=== PATIENT | female | born 1950 | race Caucasian/White ===

== ENCOUNTER → 2016-09-12 | Day surgery (SDC) | payer BC ==
[2016-09-05 09:27] LABS: HEMATOCRIT 35.4 % (37-47); MEAN CELL VOLUME 77.3 fL (80-100); MEAN CORPUSCULAR HEMOGLOBIN 23.4 pg (25-34); MEAN CORPUSCULAR HGB CONC 30.2 g/dl (32-36); MEAN PLATELET VOLUME 9.2 fL (7.4-10.4); PLATELET COUNT 388 K/uL (130-400); RED BLOOD COUNT 4.58 M/uL (4.2-5.4); WHITE BLOOD COUNT 8.99 K/uL (4.8-10.8)
[2016-09-05 09:35] LABS: PROTHROMBIN TIME (PATIENT) 10.3 SECONDS (9.0-12.0)
[2016-09-05 09:38] LABS: POTASSIUM 4.1 mmol/L (3.5-5.1)
[2016-09-06 08:57] VITALS: Ht 161.3 cm; Wt 100.0 kg
[~2016-09-12] VITALS: Ht 161.3 cm; Wt 100.0 kg
[~2016-09-12] MED LIST: ACETAMINOPHEN 325 MG TAB PO PRN; ALBUAER19 INH; ATROPINE SULFATE 0.1 MG/ML 5ML SYR IV PRN; BACITRACIN OP OINT 3.5 GM TUBE ONE; CLINDAMYCIN PHOS 150 MG/ML 2 ML VIAL IV SCH; CLR10 PO; DEXAMETHASONE SOD INJ 4 MG/ML VIAL ONE; ERYTHROMYCIN OP OINT 5 MG/GM 3.5 GM TUBE ONE; EpHEDrine SULFATE INJ 50 MG/ML AMP IV PRN; EpHEDrine SULFATE INJ 50 MG/ML AMP ONE; FENTANYL CITRATE INJ 50 MCG/1 ML 2 ML VIAL IV PRN; FENTANYL CITRATE INJ 50 MCG/1 ML 2 ML VIAL ONE; GENTIAN VIOLET TOP SOLN DROP CHARGE ONE; GLYCOPYRROLATE INJ 0.2 MG/ML VIAL ONE; HYDROCODONE/ACETAMOPHEN 5/325MG TAB PO PRN; LACTATED RINGER'S 1000ML 1,000 ML IV SCH; LIDOCAINE HCL 2% 2 ML VIAL (20MG/ML) ONE; LIDOCAINE/EPINEPHRINE 1% INJ 50 ML VIAL ONE; LNS3 PO; LORA-741 PO; METOCLOPRAMIDE HCL INJ 5 MG/ML 2 ML VIAL IV PRN; MIDAZOLAM HCL 1 MG/ML 2ML VIAL ONE; NEOSTIGMINE METHYLSULFATE 5 MG/5 ML SYR ONE; OMEP20TA14 PO; ONDANSETRON INJ 2 MG/ML 2 ML VIAL IV PRN; ONDANSETRON INJ 2 MG/ML 2 ML VIAL ONE; PHENYLEPHRINE HCL INJ 10 MG/ML VIAL ONE; POVIDONE-IODINE OP SOLN 30 ML BTL ONE; PROPOFOL IV EMULSION 10 MG/ML 20 ML VIAL IV ONE; SIMV20TA2 PO; SODIUM CHLORIDE 0.9% 1000ML 1,000 ML IV SCH; SODIUM CHLORIDE 0.9% INJ 10 ML VIAL ONE
--- NOTE | 2016-09-12 08:16 | History & Physical Bridge - [place] ---
H&P Re-Evaluation Bridge Note: I have examined the patient, reviewed the History & Physical and in the interval since the performance of the History & Physical I have noted the following changes of clinical significance: No changes noted
--- NOTE | 2016-09-12 09:53 | [facility] Post Operative Brief Note ---
Immediate Operative Summary Operative Date Sep 12, 2016. Pre-Operative Diagnosis Bilateral Dermatochalasis Post-Operative Diagnosis Same Procedure(s) Performed Bilateral Upper Eyelid Blepharoplasty Surgeon Dr. Lares Coal Chute Worker Surgeon(s) Vanda Bryson PA-C Estimated Blood Loss 1 Findings minimal medial fat herniation Specimens none Anesthesia general Complication(s) None Disposition Recovery Room / PACU
--- NOTE | 2016-09-12 09:53 | Discharge Instructions ---
Discharge Instructions Admission Reason for Admission: Bilateral Dermatochalasis Discharge Discharge Diagnosis / Problem: bilateral dermatochalasis Discharge Goals Goal(s): Decrease discomfort Activity Recommendations Activity Limitations: as noted below ACTIVITY RECOMMENDATIONS: __Normal activities _x_No bending, lifting or straining __No driving __Driving allowed when you are off pain medications __Walking permitted __You should have help at home for ___ days DRESSINGS: _x_No dressings required __Keep dressings dry/in place until first office visit __Remove dressings ___ and leave dressings off _x_Apply ice _3__ days __Remove dressings and reapply garment _x_Apply antibiotic ointment (Bacitracin Ophthalmic) to wounds 3-4 times/day for 10 days BATHING: __Keep dressings dry _x_Sponge bathing permitted __Showering permitted _x_No swimming, hot tubs or soaking in a tub MEDICATIONS: Resume previous medications unless instructed otherwise by your surgeon. _x_Do not use aspirin, Motrin, Advil or Ibuprofen as these may promote bleeding. Please use Tylenol. _x_Prescription(s) provided: pain medication and antibiotic ointment prescriptions were provided at your last office visit OTHER INSTRUCTIONS: __Record drain output 2-3 times per day SPECIAL CARE INSTRUCTIONS: * It is normal to have a mild fever after surgery. If your temperature is higher than 101.5 degrees F, please call the office at [phone]. * Constipation is a typical side effect of pain medication. An over-the- counter stool softener will help relieve this. * Leaking around surgical drains may occur and should not cause concern. Sometimes these drains become clogged. If this happens, remove the bulb and milk the clot out of the tube, then replace the bulb. * Drainage from wounds after liposuction is normal and should be expected. Garments will become soiled. You should protect furniture and bedding. This drainage should mostly subside within 2-3 days. Leave garments in place unless instructed to remove them. * If you have unusual drainage from a wound or are concerned you have an infection or have any questions or concerns, please call the office at [phone]. FOLLOW UP VISIT: If not already scheduled, please call the office, , when you return home after surgery to schedule an appointment to be seen in _2__ days. . Current Hospital Diet Patient's current hospital diet: Discharge Diet Recommended Diet: Regular Diet Procedures Procedures Performed: Bilateral Upper Eyelid Blepharoplasty Pending Studies Studies pending at discharge: no Medical Emergencies . Who to Call and When: Medical Emergencies: If at any time you feel your situation is an emergency, please call 911 immediately. . Non-Emergent Contact Non-Emergency issues call your: Primary Care Provider, Surgeon . "Provider Documentation" section prepared by Aylin Bryson. VTE Core Measure Inpt VTE Proph given/why not?: SCD's
[2016-09-12 11:23] VITALS: TEMP 36.4
--- NOTE | 2016-09-12 11:34 | Anesthesiology Progress Note ---
Anesthesia Post Op Note Date & Time Sep 12, 2016 at 11:34 Vital Signs Pain Intensity: 0 Vital Signs Past 12 Hours Date Time Temp Pulse Resp B/P Pulse Ox O2 Delivery O2 Flow Rate FiO2 09/12/16 11:23 36.4 80 20 116/75 98 Room Air 09/12/16 11:04 123/74 09/12/16 11:04 123/74 09/12/16 10:58 137/88 09/12/16 10:58 137/88 09/12/16 10:57 87 16 96 09/12/16 10:57 87 16 09/12/16 10:57 87 16 96 09/12/16 10:57 87 16 09/12/16 10:56 84 14 09/12/16 10:56 84 14 111/81 92 09/12/16 10:54 138/99 09/12/16 10:49 36.8 84 15 138/99 94 Room Air 09/12/16 10:48 140/88 09/12/16 10:46 82 17 100 09/12/16 10:46 81 15 100 09/12/16 10:44 135/87 09/12/16 10:41 79 14 09/12/16 10:41 79 14 100 09/12/16 10:39 142/89 09/12/16 10:33 141/94 09/12/16 10:31 79 16 100 09/12/16 10:31 79 12 100 09/12/16 10:28 146/89 09/12/16 10:26 88 16 93 09/12/16 10:26 88 16 09/12/16 10:25 86 19 94 09/12/16 10:25 87 19 09/12/16 10:24 118/85 09/12/16 10:20 85 15 99 09/12/16 10:20 83 21 100 09/12/16 10:18 139/87 09/12/16 10:14 136/86 09/12/16 10:10 86 19 09/12/16 10:10 84 19 100 09/12/16 10:09 143/98 09/12/16 10:06 36.5 93 16 146/93 100 Diffusion Mask 6 09/12/16 10:06 94 22 146/93 100 Diffusion Mask 6 09/12/16 07:32 36.8 81 16 131/87 97 Room Air Notes Mental Status: alert / awake / arousable, participated in evaluation Pt Amnestic to Procedure: Yes Nausea / Vomiting: adequately controlled Pain: adequately controlled Airway Patency, RR, SpO2: stable & adequate BP & HR: stable & adequate Hydration State: stable & adequate Anesthetic Complications: no major complications apparent
[2016-09-12 12:04] VITALS: BP 115/76; PULSE 85; O2SAT 96
--- NOTE | 2016-09-12 14:58 | Anesthesia Progress Nt - [facility] ---
Anesthesia Post Op Note Date & Time Sep 12, 2016 at 14:58 Vital Signs Pain Intensity: 0 Vital Signs Past 12 Hours Date Time Temp Pulse Resp B/P Pulse Ox O2 Delivery O2 Flow Rate FiO2 09/12/16 12:04 85 16 115/76 96 Room Air 09/12/16 11:23 36.4 80 20 116/75 98 Room Air 09/12/16 11:04 123/74 09/12/16 11:04 123/74 09/12/16 10:58 137/88 09/12/16 10:58 137/88 09/12/16 10:57 87 16 96 09/12/16 10:57 87 16 09/12/16 10:57 87 16 96 09/12/16 10:57 87 16 09/12/16 10:56 84 14 09/12/16 10:56 84 14 111/81 92 09/12/16 10:54 138/99 09/12/16 10:49 36.8 84 15 138/99 94 Room Air 09/12/16 10:48 140/88 09/12/16 10:46 82 17 100 09/12/16 10:46 81 15 100 09/12/16 10:44 135/87 09/12/16 10:41 79 14 09/12/16 10:41 79 14 100 09/12/16 10:39 142/89 09/12/16 10:33 141/94 09/12/16 10:31 79 16 100 09/12/16 10:31 79 12 100 09/12/16 10:28 146/89 09/12/16 10:26 88 16 93 09/12/16 10:26 88 16 09/12/16 10:25 86 19 94 09/12/16 10:25 87 19 09/12/16 10:24 118/85 09/12/16 10:20 85 15 99 09/12/16 10:20 83 21 100 09/12/16 10:18 139/87 09/12/16 10:14 136/86 09/12/16 10:10 86 19 09/12/16 10:10 84 19 100 09/12/16 10:09 143/98 09/12/16 10:06 36.5 93 16 146/93 100 Diffusion Mask 6 09/12/16 10:06 94 22 146/93 100 Diffusion Mask 6 09/12/16 07:32 36.8 81 16 131/87 97 Room Air Notes Mental Status: alert / awake / arousable, participated in evaluation Pt Amnestic to Procedure: Yes Nausea / Vomiting: adequately controlled Pain: adequately controlled Airway Patency, RR, SpO2: stable & adequate BP & HR: stable & adequate Hydration State: stable & adequate Anesthetic Complications: no major complications apparent
--- NOTE | 2016-09-13 09:55 | OPERATIVE REPORT ---
DATE OF OPERATION: 09/13/2016 PREOPERATIVE DIAGNOSIS: Bilateral upper eyelid dermatochalasis. POSTOPERATIVE DIAGNOSIS: Same. PROCEDURE: Bilateral upper blepharoplasty. SURGEON: Erika Lares. DISTRIBUTION LINEMAN: Aylin Bryson PA-C. ANESTHESIA: General. COMPLICATIONS: None. INDICATION FOR THE PROCEDURE: The patient is a 66-year-old female who had previously undergone upper blepharoplasty procedure several years ago by another physician. She began to develop additional visual field obstruction and underwent visual field testing which showed recurrent decreased peripheral vision. As such, we discussed performing bilateral upper blepharoplasty, which I felt was due to correct the excess skin weighing down her upper lids. Of note, she had a mild degree of lid ptosis on the left preoperatively, but I did not feel this was significant enough to consider ptosis repair, as it was very mild. BRIEF DESCRIPTION OF THE PROCEDURE: Risks, benefits, alternatives to the procedure were explained to the patient who agreed and signed consent. She was identified and marked in the preoperative holding area. She was brought to the operating room. She was positioned supine and placed under anesthesia. Initially, an LMA was placed. However, due to some concerns on the part of anesthesia, this was changed to an endotracheal tube prior to beginning the procedure. Once she was safely under anesthesia, the surgical site was prepped and draped sterilely. Timeout procedure was performed. Markings were applied. She was noted to have a well-healed upper blepharoplasty scars located about 11 mm superior to the ciliary margin bilaterally. I marked the inferior margin of my incision 8 mm above the ciliary margin in the mid pupillary line. A lenticular shaped excision was then planned, taking care to keep the superior aspect of the incision 1 cm below the brow. This resulted in a skin excision marking of about 1 cm. Similar markings were applied on the right side. Care was taken to avoid marking the incision medial to the medial punctum. Corneal shunts were then placed. I began with the left side. 1% lidocaine with epinephrine was used to anesthetize the planned incisions. A 15 blade scalpel was used to make the incision. Electrocautery was used to remove skin from the orbicularis muscle in a lateral to medial direction. Hemostasis was achieved using electrocautery. I then opened the medial fat compartment on the left with the return of pale yellow fat. Fat was carefully excised using forceps and electrocautery taking care to achieve hemostasis. Subsequent to this, the wound was reapproximated using 6-0 nylon interrupted sutures, taking a small bite of orbicularis muscle as well. A similar procedure was then performed on the right side. At the close of the case, there was excellent symmetry between the lids. Antibiotic ophthalmic ointment was applied. The patient was awakened and transferred to recovery room in satisfactory condition. There were no complications. I attest to the content of the Intraoperative Record and any orders documented therein. Any exceptio ns are noted below.
== END | disposition home or self-care (01) ==
LOC: X.SURG 07:14
PROVIDERS: ATTEND Plastic Surgery
DX: H02.831 Dermatochalasis of right upper eyelid (principal); H02.834 Dermatochalasis of left upper eyelid

== ENCOUNTER → 2016-11-27 | Outpatient (CLI) | payer BC ==
[~2016-11-27] MED LIST changes: -ACETAMINOPHEN 325 MG TAB PO PRN; -ATROPINE SULFATE 0.1 MG/ML 5ML SYR IV PRN; -BACITRACIN OP OINT 3.5 GM TUBE ONE; -CLINDAMYCIN PHOS 150 MG/ML 2 ML VIAL IV SCH; -DEXAMETHASONE SOD INJ 4 MG/ML VIAL ONE; -ERYTHROMYCIN OP OINT 5 MG/GM 3.5 GM TUBE ONE; -EpHEDrine SULFATE INJ 50 MG/ML AMP IV PRN; -EpHEDrine SULFATE INJ 50 MG/ML AMP ONE; -FENTANYL CITRATE INJ 50 MCG/1 ML 2 ML VIAL IV PRN; -FENTANYL CITRATE INJ 50 MCG/1 ML 2 ML VIAL ONE; -GENTIAN VIOLET TOP SOLN DROP CHARGE ONE; -GLYCOPYRROLATE INJ 0.2 MG/ML VIAL ONE; -HYDROCODONE/ACETAMOPHEN 5/325MG TAB PO PRN; -LACTATED RINGER'S 1000ML 1,000 ML IV SCH; -LIDOCAINE HCL 2% 2 ML VIAL (20MG/ML) ONE; -LIDOCAINE/EPINEPHRINE 1% INJ 50 ML VIAL ONE; -METOCLOPRAMIDE HCL INJ 5 MG/ML 2 ML VIAL IV PRN; -MIDAZOLAM HCL 1 MG/ML 2ML VIAL ONE; -NEOSTIGMINE METHYLSULFATE 5 MG/5 ML SYR ONE; -ONDANSETRON INJ 2 MG/ML 2 ML VIAL IV PRN; -ONDANSETRON INJ 2 MG/ML 2 ML VIAL ONE; -PHENYLEPHRINE HCL INJ 10 MG/ML VIAL ONE; -POVIDONE-IODINE OP SOLN 30 ML BTL ONE; -PROPOFOL IV EMULSION 10 MG/ML 20 ML VIAL IV ONE; -SODIUM CHLORIDE 0.9% 1000ML 1,000 ML IV SCH; -SODIUM CHLORIDE 0.9% INJ 10 ML VIAL ONE
[2016-11-27 10:13] LABS: BASO % 0.2 %; BASO ABS # 0.02 K/uL (0-0.2); COMPLETE YES; EOS % 1.3 %; HEMATOCRIT 36.1 % (37-47); IG% 0.2 %; LYMPH % 21.4 %; LYMPH ABS # 2.08 K/uL (1.2-3.4); MEAN CELL VOLUME 75.8 fL (80-100); MEAN CORPUSCULAR HEMOGLOBIN 23.5 pg (25-34); MEAN PLATELET VOLUME 9.3 fL (7.4-10.4); MONO % 7.8 %; NEUT % 69.1 %; PLATELET COUNT 406 K/uL (130-400); RED BLOOD COUNT 4.76 M/uL (4.2-5.4)
[2016-11-27 10:46] LABS: ESTIMATED AVERAGE GLUCOSE 123 mg/dl; HA1C FLAG Normal (Normal)
[2016-11-27 10:49] LABS: ALT/SGPT 13 U/L (12-78); AST/SGOT 8 U/L (15-37); BLOOD UREA NITROGEN 16 mg/dl (7-18); BUN/CREATININE RATIO 17.5 (10-20); CALCIUM 8.9 mg/dl (8.5-10.1); CARBON DIOXIDE 24 mmol/L (21-32); CHLORIDE 111 mmol/L (98-107); CREATININE 0.91 mg/dl (0.60-1.20); GLUCOSE 98 mg/dl (70-99); POTASSIUM 4.1 mmol/L (3.5-5.1); SODIUM 144 mmol/L (136-145)
[2016-11-27 10:53] LABS: ALKALINE PHOSPHATASE 107 U/L (45-117); CHOLESTEROL 165 mg/dl (0-200); CHOLESTEROL/HDL RATIO 3.4; HDL CHOLESTEROL 48 mg/dl; LDL CHOLESTEROL CALCULATED 91 mg/dl; TRIGLYCERIDES 132 mg/dl (0-150); VERY LOW DENSITY LIPOPROT CALC 26 mg/dl
== END | disposition home or self-care (01) ==
LOC: C.LAB1850 09:33
PROVIDERS: ATTEND Internal Medicine Pulmonary Disease
DX: C50.919 Malignant neoplasm of unspecified site of unspecified female breast (principal); E78.5 Hyperlipidemia, unspecified; J45.909 Unspecified asthma, uncomplicated; R73.9 Hyperglycemia, unspecified

== ENCOUNTER → 2017-05-28 | Outpatient (CLI) | payer BC ==
[2017-05-28 09:40] LABS: BASO % 0.4 %; BASO ABS # 0.03 K/uL (0-0.2); COMPLETE YES; EOS % 1.7 %; HEMATOCRIT 41.5 % (37-47); IG% 0.2 %; LYMPH % 27.5 %; LYMPH ABS # 2.29 K/uL (1.2-3.4); MEAN CELL VOLUME 86.5 fL (80-100); MEAN CORPUSCULAR HEMOGLOBIN 27.9 pg (25-34); MEAN CORPUSCULAR HGB CONC 32.3 g/dl (32-36); MONO % 9.7 %; NEUT % 60.5 %; PLATELET COUNT 339 K/uL (130-400); WHITE BLOOD COUNT 8.32 K/uL (4.8-10.8)
[2017-05-28 09:58] LABS: ESTIMATED AVERAGE GLUCOSE 111 mg/dl; HA1C FLAG Normal (Normal)
[2017-05-28 10:11] LABS: ALT/SGPT 14 U/L (12-78); AST/SGOT 8 U/L (15-37); BLOOD UREA NITROGEN 19 mg/dl (7-18); BUN/CREATININE RATIO 23.1 (10-20); CALCIUM 9.1 mg/dl (8.5-10.1); CARBON DIOXIDE 23 mmol/L (21-32); CHLORIDE 109 mmol/L (98-107); CREATININE 0.84 mg/dl (0.60-1.20); GLUCOSE 106 mg/dl (70-99); SODIUM 141 mmol/L (136-145)
[2017-05-28 10:15] LABS: ALKALINE PHOSPHATASE 105 U/L (45-117); CHOLESTEROL 180 mg/dl (0-200); CHOLESTEROL/HDL RATIO 3.7; HDL CHOLESTEROL 49 mg/dl; LDL CHOLESTEROL CALCULATED 101 mg/dl; TOTAL IRON BINDING CAPACITY 398 mcg/dl (250-450); TRIGLYCERIDES 149 mg/dl (0-150); VERY LOW DENSITY LIPOPROT CALC 30 mg/dl
== END | disposition home or self-care (01) ==
LOC: C.LAB1850 08:26
PROVIDERS: ATTEND Internal Medicine Pulmonary Disease
DX: K21.9 Gastro-esophageal reflux disease without esophagitis (principal); E78.5 Hyperlipidemia, unspecified; D50.8 Other iron deficiency anemias; R73.9 Hyperglycemia, unspecified

== ENCOUNTER → 2017-11-26 | Outpatient (CLI) | payer BC ==
[2017-11-26 10:07] LABS: BASO % 0.5 %; BASO ABS # 0.04 K/uL (0-0.2); EOS ABS # 0.16 K/uL (0-0.5); HEMATOCRIT 39.6 % (37-47); HEMOGLOBIN 13.2 g/dL (12.0-16.0); IG# 0.02 K/uL (0.00-0.02); LYMPH % 26.1 %; LYMPH ABS # 2.06 K/uL (1.2-3.4); MEAN CELL VOLUME 85.3 fL (80-100); MEAN CORPUSCULAR HEMOGLOBIN 28.4 pg (25-34); MEAN CORPUSCULAR HGB CONC 33.3 g/dl (32-36); MEAN PLATELET VOLUME 8.8 fL (7.4-10.4); MONO % 5.8 %; MONO ABS # 0.46 K/uL (0.11-0.59); NEUT % 65.3 %; NEUT ABS # 5.16 K/uL (1.4-6.5); PLATELET COUNT 338 K/uL (130-400); RED CELL DISTRIBUTION WIDTH CV 13.5 % (11.5-14.5); RED CELL DISTRIBUTION WIDTH SD 41.9 fL (36.4-46.3)
[2017-11-26 10:55] LABS: ALT/SGPT 13 U/L (12-78); BLOOD UREA NITROGEN 19 mg/dl (7-18); CALCIUM 9.2 mg/dl (8.5-10.1); CARBON DIOXIDE 24 mmol/L (21-32); CHOLESTEROL 195 mg/dl (0-200); CREATININE 0.81 mg/dl (0.60-1.20); GLUCOSE 98 mg/dl (70-99); POTASSIUM 4.2 mmol/L (3.5-5.1); SODIUM 139 mmol/L (136-145)
[2017-11-26 11:05] LABS: ALKALINE PHOSPHATASE 96 U/L (45-117); AST/SGOT 9 U/L (15-37); LDL CHOLESTEROL CALCULATED 120 mg/dl; TOTAL PROTEIN 7.2 gm/dl (6.4-8.2)
== END | disposition home or self-care (01) ==
LOC: C.LAB1850 09:09
PROVIDERS: ATTEND Internal Medicine Pulmonary Disease
DX: C50.919 Malignant neoplasm of unspecified site of unspecified female breast (principal); J30.9 Allergic rhinitis, unspecified; D50.8 Other iron deficiency anemias; E78.5 Hyperlipidemia, unspecified; R73.9 Hyperglycemia, unspecified; J45.909 Unspecified asthma, uncomplicated; K44.9 Diaphragmatic hernia without obstruction or gangrene